=== PATIENT | female | born 1970 | race Caucasian/White ===

== ENCOUNTER → 2018-05-14 | Outpatient (CLI) | payer OTHER ==
[2018-05-14 14:32] VITALS: BP 151/79; PULSE 88; RESP 16; TEMP 97.7; BMI 46.5
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
== END | disposition home or self-care (01) ==
LOC: WWCWWP 14:12
PROVIDERS: ATTEND Surgery
DX: Z53.9 Procedure and treatment not carried out, unspecified reason (principal)

== ENCOUNTER → 2018-11-12 | Outpatient (CLI) | payer OTHER ==
--- NOTE | 2018-11-12 11:07 | MM ---
Reason for exam: follow-up at short interval from prior study. Last mammogram was performed 7 months ago. Physical Findings: Nurse did not find any significant physical abnormalities on exam. MG Diagnostic Mammo RT w CAD CC and MLO view(s) were taken of the right breast. Prior study comparison: April 07, 2018, mammogram. February 05, 2018, mammogram. The breast tissue is heterogeneously dense. This may lower the sensitivity of mammography. Stable right upper outer quadrant focal asymmetry. These results were verbally communicated with the patient and result sheet given to the patient on 11/12/18. ASSESSMENT: Probably benign, BI-RAD 3 RECOMMENDATION: Follow-up diagnostic mammogram of both breasts in 2 months. Back on schedule for January 2019.
--- NOTE | 2018-11-12 11:13 | USB ---
Reason for exam: follow-up at short interval from prior study. US Breast LT Left complete breast ultrasound includes all four quadrants, the retroareolar region and axilla. Finding demonstrates a 11 x 9 x 13mm irregular, spiculated, hypoechoic lesion at 3 o'clock, highly suspicious, biopsy recommended, a 4 x 3 x 3mm lobular, cystic lesion at 7 o'clock, a 8mm oval lymph node at the axilla tail and a 7mm oval lymph node at the axilla tail. These results were verbally communicated with the patient and result sheet given to the patient on 11/12/18. ASSESSMENT: Highly suggestive of malignancy, BI-RAD 5 RECOMMENDATION: Ultrasound core biopsy of the left breast. Called with mammographic findings and has scheduled an appointment for the patient for 12/10/18 at 1:[address] Burgos. Biopsy scheduled for 12/01/18 at 11:20. PRELIMINARY REPORT CALLED AND FAXED TO DR. BURGOS ON 11/12/18.
== END ==
LOC: RADMAMWWP 08:15
PROVIDERS: ATTEND Surgery
DX: R92.8 Other abnormal and inconclusive findings on diagnostic imaging of breast (principal)
CPT/HCPCS: 77065

== ENCOUNTER → 2018-12-01 | Day surgery (SDC) | payer OTHER ==
[2018-12-01 11:50] VITALS: BP 133/84; PULSE 67; RESP 12; TEMP 98.7
--- NOTE | 2018-12-01 16:15 | USB ---
EXAMINATION TYPE: US biopsy breast VAD LT DATE OF EXAM: 12/01/2018 CLINICAL HISTORY: R92.8 ABN MAMMO. TECHNIQUE: Ultrasound guided core biopsy of left breast. COMPARISON: 11/12/2018 FINDINGS: The procedure of ultrasound guided core biopsy was explained to the patient. Benefits, alternatives, and risks were discussed. An informed consent was then obtained. Timeout was performed. The patient was placed in supine positioning for imaging and for the procedure. The overlying skin was prepped with Betadine and draped in usual sterile fashion. Lidocaine buffered with bicarbonate was used as anesthetic into the skin and subcutaneous tissue up to area of concern in the left breast. A prakash was made with surgical scalpel. Under ultrasound guidance, a 12-gauge vacuum assisted biopsy gun device was used to obtain 5 core samples. Following this, a biopsy clip was left in the lesion. The patient tolerated the procedure well without any immediate complication. Discharge instructions were discussed with the patient. The patient was transferred to mammography for postprocedure mammogram. Mammogram: Ribbon clip is present in the mid lateral 3:00 position. IMPRESSION: 1. Successful ultrasound-guided core biopsy. Recommendations: 1. Recommendations are pending pathology results. Pathology Results: Benign LEFT BREAST, THREE O'CLOCK, ULTRASOUND GUIDED CORE BIOPSY: Fibrocystic changes including stromal fibrosis and small cysts. Recommendation Repeat procedure. (Pre biopsy suspicion higher than results). FELI
--- NOTE | 2018-12-02 08:34 | MM ---
Reason for exam: additional evaluation requested from abnormal screening. Last mammogram was performed 1 month ago. MG Diagnostic Mammo LT Wo CAD CC and ML view(s) were taken of the left breast. Prior study comparison: November 12, 2018, right breast MG diagnostic mammo RT w CAD. April 07, 2018, mammogram. ASSESSMENT: Post procedure mammogram for marker placement RECOMMENDATION: Repeat Procedure. (Pre biopsy suspicion higher than results). FELI
== END | disposition home or self-care (01) ==
LOC: RADUSWWP 11:14
PROVIDERS: ATTEND Surgery
DX: N60.12 Diffuse cystic mastopathy of left breast (principal)
CPT/HCPCS: 88305; 77065; 19083; A4648; J2001

== ENCOUNTER → 2018-12-10 | Outpatient (CLI) | payer OTHER ==
[2018-12-10 13:26] VITALS: BP 168/91; PULSE 74; RESP 18; TEMP 97.9; BMI 46.5
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
--- NOTE | 2018-12-14 08:11 | USB ---
Reason for exam: clinical finding. History: Benign US biopsy breast VAD LT of the left breast, December 01, 2018. Physical Findings: Breast exam performed by Dr. Burgos. US Breast RT Right complete breast ultrasound includes all four quadrants, the retroareolar region and axilla. Finding demonstrates a 0.6 x 0.4 x 0.5cm cystic, benign lesion at 11 o'clock. No other solid or cystic lesion. Short interval follow up recommended. Appropriate surgical managment of the left breast recommended. These results were verbally communicated with the patient and result sheet given to the patient on 12/10/18. ASSESSMENT: Probably benign, BI-RAD 3 RECOMMENDATION: Follow-up diagnostic mammogram of the right breast in 6 months.
== END ==
LOC: WWCWWP 13:13
PROVIDERS: ATTEND Surgery
DX: R92.8 Other abnormal and inconclusive findings on diagnostic imaging of breast (principal)

== ENCOUNTER → 2019-02-07 | Outpatient (CLI) | payer OTHER ==
[2019-02-07 13:41] LABS: HCT 44.6 % (34.0-46.0); HGB 14.7 gm/dL (11.4-16.0); MCH 30.7 pg (25.0-35.0); Mean Platelet Volume 6.1; Platelet Count 417 k/uL (150-450); RBC 4.79 m/uL (3.80-5.40); RDW 12.5 % (11.5-15.5); WBC 15.8 k/uL (3.8-10.6)
== END | disposition home or self-care (01) ==
LOC: LABPAT 13:08
PROVIDERS: ATTEND Anesthesiology
DX: Z01.812 Encounter for preprocedural laboratory examination (principal)
CPT/HCPCS: 36415; 85027; 93005

== ENCOUNTER 2019-02-08 09:07 | Day surgery (SDC) | payer OTHER ==
[2019-02-04 11:13] VITALS: BMI 48.2
[~2019-02-08 09:07] MED LIST: DEXAMETHASONE SOD PHOSPHATE 10 MG/ML 1 ML VIAL IV ONE; HEPARIN SODIUM,PORCINE 5,000 UNIT/ML 1 ML VIAL SQ ONE; HYDROmorphone 0.5 MG/0.5 ML SYRINGE IVP PRN; LIDOCAINE 1% 20 ML VIAL (10MG/ML) FOR IV START INTRADERMA PRN; MIDAZOLAM 2 MG/2 ML VIAL IV PRN; ONDANSETRON 4 MG/2 ML VIAL IVP ONE; Pre Op ABX Message 1 EACH MISC MISCELLANE ONE; SCOPOLAMINE 1.5MG/72HR PATCH TRANSDERM ONE
[2019-02-08] MEDS ORDERED: ALPRAZolam 0.5 MG TAB PO ONE (09:50)
[2019-02-08 09:58] LABS: Glucose,Whole Blood 97 mg/dL (75-99)
[2019-02-08] MEDS: LACTATED RINGERS 1,000 ML IV SCH ×2 (09:58→13:42)
[2019-02-08] MEDS ORDERED: LIDOCAINE 1% INJ 10MG/ML (20 ML MDV) SQ ONE ×2 (10:56→13:54)
[2019-02-08] MEDS ORDERED: CITRIC ACID-SODIUM CITRATE 15 ML CUP PO STA (11:59)
[2019-02-08] MEDS ORDERED: HEPARIN SODIUM,PORCINE 5,000 UNIT/ML 1 ML VIAL SQ ONE (13:16)
[2019-02-08] MEDS ORDERED: LIDOCAINE 1% INJ 10MG/ML (20 ML MDV) ONE (13:54)
[2019-02-08] MEDS ORDERED: PHENYLEPHRINE-0.9% NACL SYG 1 MG/10 ML SYRINGE ONE (13:54)
[2019-02-08] MEDS ORDERED: PROPOFOL 10 MG/ML 20 ML VIAL IV ONE (13:54)
[2019-02-08] MEDS ORDERED: fentaNYL (PF) 50 MCG/ML 2 ML AMP ONE (13:54)
[2019-02-08] MEDS ORDERED: SUCCINYLCHOLINE CHLORIDE VIAL 200 MG/10 ML VIAL IV ONE (13:54)
[2019-02-08] MEDS ORDERED: MIDAZOLAM 2 MG/2 ML VIAL ONE (13:54)
[2019-02-08] MEDS ORDERED: ePHEDrine SULFATE/0.9% NACL/PF 50 MG/5 ML SYRINGE IV ONE (13:54)
--- NOTE | 2019-02-08 14:31 | P.OP ---
Date of Procedure: 02/08/19 Preoperative Diagnosis: Left breast ultrasound core biopsy discordant and recommended for needle local excisional biopsy of ultrasound abnormality in left breast Postoperative Diagnosis: Same Procedure(s) Performed: needle Localization excisional lumpectomy area of concern in left breast Anesthesia: ELLEN Surgeon: Joan Burgos Estimated Blood Loss (ml): 5 IV fluids (ml): 400 Pathology: other (Breast tissue) Condition: stable Disposition: same day Indications for Procedure: Ultrasound-guided core biopsy left breast lession discordant pathology therefore recommended for needle localization and excisional biopsy of area of concern Operative Findings: Fibrofatty breast tissue Description of Procedure: Following needle localization of the area of concern in the left breast the patient was brought to the operating room. Following induction of general anesthesia the left breast was prepped and draped in a sterile fashion. Incision was made and carried down to the shaft of the needle. The needle was brought into the incision. The tissue was grasped using an Allis clamp. Tissue was excised surrounding the needle and surrounding the tip of the needle. The tissue appeared to be fibrofatty in nature. The specimen was removed and painted for orientation. Titanium clips were placed to edith the cavity. After we were assured that hemostasis was attained the deep tissues were closed using 3-0 Vicryl suture. The skin was closed using 4-0 Monocryl. Steri-Strips were applied. The patient tolerated the procedure in stable condition.
--- NOTE | 2019-02-08 14:36 | P.DS ---
Providers Attending physician: Joan Burgos Primary care physician: Mitul Rainey Plan - Discharge Summary Discharge Rx Participant: Yes New Discharge Prescriptions: No Action methylPREDNISolone Dose Pack [Medrol Dose Pack] 4 mg PO HS Lisinopril [Zestril] 10 mg PO HS Levofloxacin [Levaquin] 750 mg PO HS DULoxetine HCL [Cymbalta] 30 mg PO HS Discharge Medication List DULoxetine HCL [Cymbalta] 30 mg PO HS 02/04/19 [History] Levofloxacin [Levaquin] 750 mg PO HS 02/04/19 [History] Lisinopril [Zestril] 10 mg PO HS 02/04/19 [History] methylPREDNISolone Dose Pack [Medrol Dose Pack] 4 mg PO HS 02/04/19 [History] Follow up Appointment(s)/Referral(s): Joan Burgos MD [STAFF PHYSICIAN] - 1 Week Patient Instructions/Handouts: *Surgery [facility] - Scopalamine Patch Instructions Activity/Diet/Wound Care/Special Instructions: do not drive today wear bra until seen by Dr. Horace banda shower after 48 hours Discharge Disposition: HOME SELF-CARE
[2019-02-08 15:02] VITALS: TEMP 96.8
[2019-02-08 15:04] VITALS: RESP 16
[2019-02-08 16:11] VITALS: BP 104/75; PULSE 70
--- NOTE | 2019-02-11 14:42 | USB ---
US Breast Localization LT EXAMINATION TYPE: US breast localization LT, MG surgical specimen LT, MG diagnostic mammo LT w CAD DATE OF EXAM: 02/08/2019 COMPARISON: Left breast biopsy dated 12/01/2018, discordant. CLINICAL HISTORY: R92.8 ABNORMAL MAMMOGRAM. TECHNIQUE/PROCEDURE: The procedure of ultrasound guided needle localization of the left breast was explained to the patient. Benefits, alternatives, and risks were discussed. An informed consent was then obtained. Preprocedural timeout was performed. Site A: The patient was placed in supine positioning for imaging and for the procedure. The overlying skin was prepped and draped in usual sterile fashion. 10 cc of 1% lidocaine was used as anesthetic into the skin and subcutaneous tissue up the discordant mass at the 3:00 position in the left breast in zone BC. Under ultrasound guidance from a medial approach, 5 cm needle was passed through the mass and localization wire was placed through the coaxial needle. The coaxial needle was withdrawn and postprocedural mammograms demonstrate appropriate placement of the wire. Images were marked for the surgeon. The patient tolerated the procedure well without any immediate complication. The patient was kept in the radiology department for short stay after the procedure and then taken to surgery for surgical excision. The proximal and distal end of the wire were included in the specimen mammogram. Biopsy marker was also included in the specimen. The patient was kept in hospital for short stay after the procedure and then discharged home in stable condition. IMPRESSION: Ultrasound-guided needle localization of a discordant mass in the left breast at the 3:00 position. Pathology pending. Pathology Results: Benign LEFT BREAST, LUMPECTOMY: Fibrocystic spectrum lesions with focal intraductal papillomatosis and intraductal mineralizations. RECOMMENDATION: Follow-up diagnostic mammogram of the left breast. Pathology Results: Benign LEFT BREAST, LUMPECTOMY: Fibrocystic spectrum lesions with focal intraductal papillomatosis and intraductal mineralizations. Recommendation Follow up mammogram of the left breast in 6 months. FELI
== END 2019-02-08 16:20 | disposition home or self-care (01) ==
LOC: OR 09:07
PROVIDERS: ATTEND Surgery
DX: D24.2 Benign neoplasm of left breast (principal); N60.12 Diffuse cystic mastopathy of left breast; I10 Essential (primary) hypertension; M79.7 Fibromyalgia; G93.2 Benign intracranial hypertension; G47.33 Obstructive sleep apnea (adult) (pediatric); Z99.89 Dependence on other enabling machines and devices; J45.909 Unspecified asthma, uncomplicated; M19.90 Unspecified osteoarthritis, unspecified site; Z97.3 Presence of spectacles and contact lenses; F17.210 Nicotine dependence, cigarettes, uncomplicated; Z98.84 Bariatric surgery status; Z98.51 Tubal ligation status; Z79.899 Other long term (current) drug therapy; Z88.8 Allergy status to other drugs, medicaments and biological substances
CPT/HCPCS: 19125; 19285; 94660; 81025; 88307; 76098; J2250; J0330; J1644; J1100; J2405; J2001; J3010; J2370; J2704

== ENCOUNTER → 2019-02-08 | Outpatient (CLI) | payer OTHER ==
--- NOTE | 2019-02-08 10:07 | MM ---
Reason for exam: additional evaluation requested from prior study. Last mammogram was performed 2 months ago. History: Benign US biopsy breast VAD LT of the left breast, December 01, 2018. MG Diagnostic Mammo LT w CAD CC and MLO view(s) were taken of the left breast. Prior study comparison: December 01, 2018, left breast MG diagnostic mammo LT wo CAD. November 12, 2018, right breast MG diagnostic mammo RT w CAD. February 05, 2018, mammogram. The breast tissue is heterogeneously dense. This may lower the sensitivity of mammography. Left central outer focal asymmetry is associtated with a biopsy marker. This will be needle localized today. No new findings on the left. These results were verbally communicated with the patient and result sheet given to the patient on 02/08/19. ASSESSMENT: Suspicious, BI-RAD 4 RECOMMENDATION: Localization and excision of the left breast.
== END | disposition home or self-care (01) ==
LOC: RADMAMWWP 08:15
PROVIDERS: ATTEND Surgery
DX: R92.8 Other abnormal and inconclusive findings on diagnostic imaging of breast (principal); N60.02 Solitary cyst of left breast
CPT/HCPCS: 77065

== ENCOUNTER → 2019-02-16 | Outpatient (CLI) | payer OTHER ==
[2019-02-16 16:40] VITALS: BP 120/86; PULSE 71; RESP 16; TEMP 97.9; BMI 46.5
--- NOTE | 2019-02-16 17:18 | P.PN ---
Progress Note - Text Progress Note Date: 02/16/19 Shakira is status post a left breast needle local excisional biopsy on [id number] [id number]. Pathology revealed intraductal papillomatosis in intraductal mineralization's. She has no complaints postoperative. Physical exam: Lungs: Some bilateral lower lung base using mild Heart: Regular rate and rhythm Left breast: Incision clean and dry no evidence of infection Impression/plan: 1. Left breast focal intraductal papillomatosis Repeat left breast mammogram in 6 months with position exam at that time 2. Right breast mammogram on schedule Dr. Rainey
== END | disposition home or self-care (01) ==
LOC: WWCWWP 16:17
PROVIDERS: ATTEND Surgery
DX: Z53.9 Procedure and treatment not carried out, unspecified reason (principal)

== ENCOUNTER → 2019-12-02 | Outpatient (CLI) | payer OTHER ==
--- NOTE | 2019-12-02 14:08 | MM ---
Reason for exam: additional evaluation requested from prior study. Last mammogram was performed 10 months ago. History: Patient is postmenopausal. Benign US breast localization LT, February 08, 2019. Benign US biopsy breast VAD LT of the left breast, December 01, 2018. Physical Findings: Nurse did not find any significant physical abnormalities on exam. MG Diagnostic Mammo w CAD JORDAN Bilateral CC and MLO view(s) were taken. Prior study comparison: February 08, 2019, left breast MG diagnostic mammo LT w CAD. December 01, 2018, left breast MG diagnostic mammo LT wo CAD. There are scattered fibroglandular densities. Benign appearing bilateral calcifications. There is chronic nodularity in the left breast. Post operative changes on left breast. These results were verbally communicated with the patient and result sheet given to the patient on 12/02/19. ASSESSMENT: Benign, BI-RAD 2 RECOMMENDATION: Routine screening mammogram of both breasts in 1 year.
== END | disposition home or self-care (01) ==
LOC: RADMAMWWP 13:04
PROVIDERS: ATTEND Surgery
DX: R92.8 Other abnormal and inconclusive findings on diagnostic imaging of breast (principal)
CPT/HCPCS: 77066

== ENCOUNTER 2021-02-26 14:36 | Inpatient (IN) | payer OTHER ==
[2021-02-26] MEDS ORDERED: methylPREDNISolone SOD SUCCI 125 MG/2 ML VIAL IV STA (17:47)
[2021-02-26] MEDS ORDERED: IPRATROPIUM-ALBUTEROL 3 ML NEB INHALATION STA (17:47)
--- NOTE | 2021-02-26 17:52 | ED ---
General Adult HPI - General Chief complaint: Shortness of Breath Stated complaint: SOB Time Seen by Provider: 02/26/21 17:30 Source: patient, RN/ (Case discussed with Dr. Rainey), RN notes reviewed Mode of arrival: ambulatory Limitations: no limitations - History of Present Illness Initial comments: Patient is a pleasant 50-year-old female presenting to the emergency Department with cough and dyspnea. Patient did have COVID-19 infection 2 months ago. Symptoms started getting worse again 4 days ago. Patient was in the emergency department and received steroid injection and placed on 50 mg steroids daily. Patient has symptoms despite this. Patient and wheezing. Cough that has been mostly dry. No fevers. Patient was tested negative for COVID-19 infection and influenza 4 days ago. No fevers. No leg pain or leg swelling. - Related Data Home Medications Medication Instructions Recorded Confirmed DULoxetine HCL [Cymbalta] 30 mg PO HS 02/04/19 02/16/19 lisinopriL [Zestril] 10 mg PO HS 02/04/19 02/16/19 Allergies Allergy/AdvReac Type Severity Reaction Status Date / Time adhesive tape Allergy Rash/Hives Verified 02/26/21 15:35 Review of Systems ROS Statement: Those systems with pertinent positive or pertinent negative responses have been documented in the HPI. ROS Other: All systems not noted in ROS Statement are negative. Constitutional: Denies: fever Eyes: Denies: eye pain ENT: Denies: ear pain Respiratory: Reports: as per HPI, cough, dyspnea Cardiovascular: Denies: chest pain Endocrine: Denies: fatigue Gastrointestinal: Denies: abdominal pain Genitourinary: Denies: dysuria Musculoskeletal: Denies: back pain Skin: Denies: rash Neurological: Denies: weakness Past Medical History Past Medical History: Fibromyalgia, Hypertension, Osteoarthritis (OA), Sleep Apnea/CPAP/BIPAP Additional Past Medical History / Comment(s): CPAP use. Current respiratory illness, on antibiotic and steroid. Instructed to notify Dr Burgos. History of Any Multi-Drug Resistant Organisms: None Reported Past Surgical History: Bariatric Surgery, Section, Orthopedic Surgery, Tonsillectomy, Tubal Ligation Additional Past Surgical History / Comment(s): Right femur surgery. Right sh oulder surgery. Lap band surgery. Past Anesthesia/Blood Transfusion Reactions: Motion Sickness, Postoperative Nausea & Vomiting (PONV) Additional Past Anesthesia/Blood Transfusion Reaction / Comment(s): "Severe PONV even with anti nausea medications and patch." Grandmother had PONV. Past Psychological History: No Psychological Hx Reported Smoking Status: Current every day smoker Past Alcohol Use History: None Reported Past Drug Use History: None Reported - Past Family History Brother(s) Family Medical History: Cancer Additional Family Medical History / Comment(s): Brain cancer. General Exam Limitations: no limitations General appearance: alert, in no apparent distress Head exam: Present: normocephalic Eye exam: Present: normal appearance Respiratory exam: Present: wheezes, decreased breath sounds Cardiovascular Exam: Present: regular rate, normal rhythm GI/Abdominal exam: Present: soft. Absent: tenderness Extremities exam: Present: normal inspection. Absent: pedal edema, calf tenderness Neurological exam: Present: alert Psychiatric exam: Present: normal affect, normal mood Skin exam: Present: normal color Course Vital Signs 02/26/21 02/26/21 02/26/21 15:35 18:17 18:26 Temperature 97.9 F Pulse Rate 61 84 88 Respiratory 18 Rate Blood Pressure 177/84 O2 Sat by Pulse 98 Oximetry 02/26/21 18:33 Temperature Pulse Rate 61 Respiratory Rate Blood Pressure O2 Sat by Pulse Oximetry EKG Findings - EKG Comments: EKG Findings:: Normal sinus rhythm with rate of 60. UT 134. QRS 112. QT 390. QTC 390. Left axis. Left anterior fascicular block. No acute ST change. Medical Decision Making - Medical Decision Making Patient reevaluated and resting comfortably in bed. Lung sounds with continued wheezing, mild increased air exchange. Patient still feels short of breath. Patient updated on results and plan. Case was discussed with Dr. Rutledge, who will admit covered Dr. Rainey. - Lab Data Result diagrams: 02/26/21 18:03 02/26/21 18:03 Lab Results 02/26/21 02/26/21 02/26/21 Range/Units 18:03 18:03 18:03 WBC 8.9 (3.8-10.6) k/uL RBC 4.57 (3.80-5.40) m/uL Hgb 14.6 (11.4-16.0) gm/dL Hct 42.8 (34.0-46.0) % MCV 93.5 (80.0-100.0) fL MCH 31.8 (25.0-35.0) pg MCHC 34.0 (31.0-37.0) g/dL RDW 13.3 (11.5-15.5) % Plt Count 351 (150-450) k/uL MPV 7.4 Neutrophils % 65 % Lymphocytes % 26 % Monocytes % 6 % Eosinophils % 1 % Basophils % 0 % Neutrophils # 5.8 (1.3-7.7) k/uL Lymphocytes # 2.3 (1.0-4.8) k/uL Monocytes # 0.5 (0-1.0) k/uL Eosinophils # 0.1 (0-0.7) k/uL Basophils # 0.0 (0-0.2) k/uL PT 10.2 (9.0-12.0) sec INR 0.9 (<1.2) APTT 23.8 (22.0-30.0) sec D-Dimer 0.52 (<0.60) mg/L FEU Sodium 137 (137-145) mmol/L Potassium 3.7 (3.5-5.1) mmol/L Chloride 101 (98-107) mmol/L Carbon Dioxide 30 (22-30) mmol/L Anion Gap 6 mmol/L BUN 13 (7-17) mg/dL Creatinine 0.62 (0.52-1.04) mg/dL Est GFR (CKD-EPI)AfAm >90 (>60 ml/min/1.73 sqM) Est GFR (CKD-EPI)NonAf >90 (>60 ml/min/1.73 sqM) Glucose 86 (74-99) mg/dL Plasma Lactic Acid Mo (0.7-2.0) mmol/L Calcium 9.5 (8.4-10.2) mg/dL Total Bilirubin 0.9 (0.2-1.3) mg/dL AST 18 (14-36) U/L ALT 15 (4-34) U/L Alkaline Phosphatase 59 (38-126) U/L NT-Pro-B Natriuret Pep pg/mL Total Protein 7.1 (6.3-8.2) g/dL Albumin 4.0 (3.5-5.0) g/dL 11/16/21 11/16/21 Range/Units 18:03 18:03 WBC (3.8-10.6) k/uL RBC (3.80-5.40) m/uL Hgb (11.4-16.0) gm/dL Hct (34.0-46.0) % MCV (80.0-100.0) fL MCH (25.0-35.0) pg MCHC (31.0-37.0) g/dL RDW (11.5-15.5) % Plt Count (150-450) k/uL MPV Neutrophils % % Lymphocytes % % Monocytes % % Eosinophils % % Basophils % % Neutrophils # (1.3-7.7) k/uL Lymphocytes # (1.0-4.8) k/uL Monocytes # (0-1.0) k/uL Eosinophils # (0-0.7) k/uL Basophils # (0-0.2) k/uL PT (9.0-12.0) sec INR (<1.2) APTT (22.0-30.0) sec D-Dimer (<0.60) mg/L FEU Sodium (137-145) mmol/L Potassium (3.5-5.1) mmol/L Chloride (98-107) mmol/L Carbon Dioxide (22-30) mmol/L Anion Gap mmol/L BUN (7-17) mg/dL Creatinine (0.52-1.04) mg/dL Est GFR (CKD-EPI)AfAm (>60 ml/min/1.73 sqM) Est GFR (CKD-EPI)NonAf (>60 ml/min/1.73 sqM) Glucose (74-99) mg/dL Plasma Lactic Acid Mo 0.8 (0.7-2.0) mmol/L Calcium (8.4-10.2) mg/dL Total Bilirubin (0.2-1.3) mg/dL AST (14-36) U/L ALT (4-34) U/L Alkaline Phosphatase (38-126) U/L NT-Pro-B Natriuret Pep 377 pg/mL Total Protein (6.3-8.2) g/dL Albumin (3.5-5.0) g/dL - Radiology Data Radiology results: image reviewed (Chest x-ray shows mild interstitial prominence is viewed by myself. Radiologist dictation pending.) Disposition Clinical Impression: Acute exacerbation of chronic obstructive pulmonary disease Disposition: ADMITTED IP TO THIS HOSP Is patient prescribed a controlled substance at d/c from ED?: No Referrals: Mitul Rainey MD [Primary Care Provider] - 1-2 days Decision Time: 19:07
[2021-02-26 18:09] LABS: Basophils % (A) 0 %; Eosinophils # (A) 0.1 k/uL (0-0.7); Eosinophils % (A) 1 %; HCT 42.8 % (34.0-46.0); HGB 14.6 gm/dL (11.4-16.0); Lymphocytes # (A) 2.3 k/uL (1.0-4.8); Lymphocytes % (A) 26 %; MCH 31.8 pg (25.0-35.0); MCV 93.5 fL (80.0-100.0); Mean Platelet Volume 7.4; Monocytes # (A) 0.5 k/uL (0-1.0); Monocytes % (A) 6 %; Neutrophils # (A) 5.8 k/uL (1.3-7.7); Neutrophils % (A) 65 %; Platelet Count 351 k/uL (150-450); RBC 4.57 m/uL (3.80-5.40); RDW 13.3 % (11.5-15.5); WBC 8.9 k/uL (3.8-10.6)
[2021-02-26 18:23] LABS: ALT 15 U/L (4-34); AST 18 U/L (14-36); African American GFR (CKD) >90 (>60 ml/min/1.73 sqM); Alkaline Phosphatase 59 U/L (38-126); Anion Gap 6 mmol/L; Blood Urea Nitrogen 13 mg/dL (7-17); Calcium 9.5 mg/dL (8.4-10.2); Carbon Dioxide 30 mmol/L (22-30); Chloride 101 mmol/L (98-107); Glucose 86 mg/dL (74-99); Non-African American GFR(CKD) >90 (>60 ml/min/1.73 sqM); Potassium 3.7 mmol/L (3.5-5.1); Sodium 137 mmol/L (137-145); Total Bilirubin 0.9 mg/dL (0.2-1.3); Total Protein 7.1 g/dL (6.3-8.2)
[2021-02-26 18:29] LABS: INR 0.9 (<1.2); Partial Thromboplastin Time 23.8 sec (22.0-30.0); Prothrombin Time 10.2 sec (9.0-12.0)
[2021-02-26] MEDS: IPRATROPIUM-ALBUTEROL 3 ML NEB INHALATION SCH (19:25)
--- NOTE | 2021-02-26 19:32 | XR ---
EXAMINATION TYPE: XR chest 2V DATE OF EXAM: 02/26/2021 CLINICAL HISTORY: difficulty breathing. TECHNIQUE: Frontal and lateral view of the chest. COMPARISON: None FINDINGS: The cardiomediastinal silhouette is within normal limits for size. Pulmonary vasculature i s normal. There is no focal air space opacity. No pleural effusion. No pneumothorax seen. No acute d isplaced osseous fracture. IMPRESSION: No acute cardiopulmonary process.
[2021-02-26] MEDS: CEFDINIR 300 MG CAP PO SCH (23:05)
[2021-02-27] MEDS: methylPREDNISolone SOD SUCCI 125 MG/2 ML VIAL IV SCH ×4 (00:18→18:06)
[2021-02-27] MEDS: IPRATROPIUM-ALBUTEROL 3 ML NEB INHALATION SCH ×4 (08:17→20:56)
[2021-02-27] MEDS: CEFDINIR 300 MG CAP PO SCH ×2 (09:19→21:05)
[2021-02-27 11:38] LABS: Glucose,Whole Blood 151 mg/dL (75-99)
[2021-02-27] MEDS: INSULIN ASPART (NovoLOG) 100 UNIT/ML VIAL SQ SCH ×3 (12:17→21:05)
[2021-02-27] MEDS: lisinopriL 10 MG TAB PO SCH (12:17)
[2021-02-27] MEDS ORDERED: FLUCONAZOLE 150 MG TAB PO STA (12:40)
--- NOTE | 2021-02-27 14:54 | P.HPIM ---
History of Present Illness H&P Date: 02/27/21 HISTORY OF PRESENT ILLNESS This is a 50-year-old female patient of Dr. Rainey with past medical history of hypertension, fibromyalgia, moderate intermittent asthma, obstructive sleep apnea with CPAP, Covid 19 01/10/2021. Patient gives history that she has had ongoing problems since she had Covid 19. 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 Recently granddaughter was sick with upper respiratory infection and 2 days later she started having shortness of breath. She presented to [facility] last day to the emergency center and was given prednisone 50 mg for 10 days and received a steroid injection IM. She states now that she cannot get her air. She has been hoarse since Covid 19. Last day she did vomit but that is resolved. No fever or chills. She does complain of dysuria. Patient presented to [facility] emergency center for evaluation. She was found to be afebrile, heart rate 61, blood pressure 177/84, pulse ox 98% on room air. EKG was sinus rhythm with left anterior fascicular block. CBC and CMP unremarkable. Lactic acid 0.8. D-dimer 0.52. INR 0.9. Coronavirus PCR not detected. Chest x-ray reveals no acute cardio pulmonary changes. She was started on DuoNeb treatments, IV Solu-Medrol and oral antibiotics, admitted and consult placed with Dr. Velez her pulmonary doctor. REVIEW OF SYSTEMS Constitutional: No fever, no chills, no night sweats. No weight change. No weakness, fatigue or lethargy. No daytime sleepiness. EENT: No headache. No blurred vision or double vision, no loss of vision. No loss of Hearing, no ringing in the ears, no dizziness. No nasal drainage or congestion. No epistaxis. No sore throat. Lungs: Reports shortness of breath, reports cough, reports sputum production. No wheezing. Cardiovascular: No chest pain, no lower extremity edema. No palpitations. No paroxysmal nocturnal dyspnea. No orthopnea. No lightheadedness or dizziness. No syncopal episodes. Abdominal: No abdominal pain. No nausea, vomiting. No diarrhea. No constipation. No bloody or tarry stools. No loss of appetite. Genitourinary: No dysuria, increased frequency, urgency. No urinary retention. Musculoskeletal: No myalgias. No muscle weakness, no gait dysfunction, no frequent falls. No back pain. No neck pain. Integumentary: No wounds, no lesions. No rash or pruritus. No unusual bruising. No change in hair or nails. Neurologic: No aphasia. No facial droop. No change in mentation. No head injury. No headache. No paralysis. No paresthesia. Psychiatric: No depression. No anxiety. No mood swings. Endocrine: No abnormal blood sugars. No weight change. No excessive sweating or thirst. No cold intolerance. SOCIAL HISTORY Patient is a smoker of less than pack a day for 10 years. Patient has a nebulizer and CPAP at home. She denies any alcohol use, marijuana or illicit drug use. She lives at home with her . 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 FAMILY HISTORY Father at age 67 from liver cancer with history of hepatitis. Mother age 67 from Mrs. myocardial infarction while sleeping. Patient is a total of 5 siblings. One brother has glioblastoma treated for 7 years, CHF, morbid obesity. Patient has 5 children with no major medical problems patient is a smoker 10 years currently down to half a pack per day or less. She denies any marijuana use, alcohol use or illicit drug use. She is and lives at home with her . 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 PHYSICAL EXAMINATION Gen: This allen 50-year-old female. She is resting in bed appears to be comfortable and in no acute distress. Noted cough. HEENT: Head is atraumatic, normocephalic. Pupils equal, round. Sclerae is anicteric. NECK: Supple. No JVD. No lymphadenopathy. No thyromegaly. LUNGS: diminished with scattered expiratory wheeze and rhonchi. No intercostal retractions. HEART: Regular rate and rhythm. No murmur. ABDOMEN: Soft. Bowel sounds are present. No masses. No tenderness. EXTREMITIES: No pedal edema. No calf tenderness. dorsalis pedis palpable bilaterally. NEUROLOGICAL: Patient is awake, alert and oriented x3. Cranial nerves 2 through 12 are grossly intact. ASSESSMENT AND PLAN 1. Acute exacerbation of moderate intermittent asthma and COPD. Patient started on IV Solu-Medrol 60 mg every 6 hours, DuoNeb treatments 4 times daily and as needed, consult pulmonary medicine. 2. Acute bronchitis. Patient started on Omnicef 300 mg twice daily. 3. Hypertension. Continue lisinopril 10 mg daily. 4. Fibromyalgia. Stable. 5. Obstructive sleep apnea. Family may bring and CPAP machine. 6. Recent history of Covid 19 02/09/2021. 7. Tobacco use and dependence. Smoking cessation. 8. COVID-19 testing negative. Patient has been hospitalized during a pandemic. Patient will be admitted to the hospital for a minimum of 2 night stay. DISCHARGE PLAN Home. Impression and plan of care have been directed as dictated by the signing physician. Shena Ribera nurse practitioner acting as scribe for signing physician. Past Medical History Past Medical History: Fibromyalgia, Hypertension, Osteoarthritis (OA), Sleep Apnea/CPAP/BIPAP Additional Past Medical History / Comment(s): CPAP use. Current respiratory illness, on antibiotic and steroid. History of Any Multi-Drug Resistant Organisms: None Reported Past Surgical History: Bariatric Surgery, Section, Orthopedic Surgery, Tonsillectomy, Tubal Ligation Additional Past Surgical History / Comment(s): Right femur surgery. Right shoulder surgery. Lap band surgery. Past Anesthesia/Blood Transfusion Reactions: Motion Sickness, Postoperative Nausea & Vomiting (PONV) Additional Past Anesthesia/Blood Transfusion Reaction / Comment(s): "Severe PONV even with anti nausea medications and patch." Grandmother had PONV. Past Psychological History: No Psychological Hx Reported Smoking Status: Current every day smoker Past Alcohol Use History: None Reported Additional Past Alcohol Use History / Comment(s): Smokes 1/2 PPD, 20+ yrs. Past Drug Use History: None Reported - Past Family History Brother(s) Family Medical History: Cancer Additional Family Medical History / Comment(s): Brain cancer. Medications and Allergies Home Medications Medication Instructions Recorded Confirmed Type lisinopriL [Zestril] 10 mg PO DAILY 02/04/19 02/26/21 History ALPRAZolam [Xanax] 0.5 mg PO TID PRN 02/26/21 02/26/21 History Albuterol Sulfate [Proair Hfa] 2 puff INHALATION RT-Q6H PRN 02/26/21 02/26/21 History predniSONE [Deltasone] 50 mg PO DAILY 02/26/21 02/26/21 History Allergies Allergy/AdvReac Type Severity Reaction Status Date / Time adhesive tape Allergy Rash/Hives Verified 02/26/21 19:41 Physical Exam Vitals: Vital Signs Temp Pulse Pulse Pulse Resp BP BP 02/27/21 08:26 92 18 02/27/21 08:17 90 22 02/27/21 08:00 69 68 18 02/27/21 07:34 97.8 F 69 21 02/27/21 05:50 18 02/27/21 00:27 98.2 F 68 18 130/64 02/27/21 00:20 68 18 02/26/21 23:01 98.2 F 69 18 136/65 02/26/21 19:53 61 18 02/26/21 18:33 61 02/26/21 18:26 88 02/26/21 18:17 84 02/26/21 15:35 97.9 F 61 18 177/84 BP Pulse Ox 02/27/21 08:26 02/27/21 08:17 95 02/27/21 08:00 02/27/21 07:34 177/76 94 L 02/27/21 05:50 02/27/21 00:27 95 02/27/21 00:20 02/26/21 23:01 94 L 02/26/21 19:53 02/26/21 18:33 02/26/21 18:26 02/26/21 18:17 02/26/21 15:35 98 Intake and Output 02/26/21 02/27/21 02/27/21 22:59 06:59 14:59 Other: Voiding Method Toilet Toilet Weight 131.542 kg 131.542 kg Results CBC & Chem 7: 02/26/21 18:03 02/26/21 18:03 Thrombosis Risk Factor Assmnt - Choose All That Apply Each Factor Represents 1 point: Age 41-60 years, Obesity (BMI >25), Serious lung disease incl. pneumonia (< 1month) Thrombosis Risk Factor Assessment Total Risk Factor Score: 3 Thrombosis Risk Factor Assessment Level: Moderate Risk
[2021-02-27 17:30] LABS: Glucose,Whole Blood 173 mg/dL (75-99)
[2021-02-27 20:21] LABS: Glucose,Whole Blood 157 mg/dL (75-99)
[2021-02-28] MEDS: methylPREDNISolone SOD SUCCI 125 MG/2 ML VIAL IV SCH ×2 (00:10→05:38)
[2021-02-28] MEDS: IPRATROPIUM-ALBUTEROL 3 ML NEB INHALATION PRN (00:25)
[2021-02-28 07:42] LABS: Glucose,Whole Blood 184 mg/dL (75-99)
[2021-02-28] MEDS: CEFDINIR 300 MG CAP PO SCH ×2 (08:34→20:38)
[2021-02-28] MEDS: lisinopriL 10 MG TAB PO SCH (08:34)
[2021-02-28] MEDS: INSULIN ASPART (NovoLOG) 100 UNIT/ML VIAL SQ SCH ×4 (08:35→20:32)
--- NOTE | 2021-02-28 09:33 | P.CNPUL ---
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, her other active medical problems include hypertension hypertensive cardiovascular disease fibromyalgia few weeks ago she joined work since then she is been short of breath get exhausted and tired easily, she have a couple of visit to emergency department at [facility] where she was discharged given course of steroids for 10 days, did not improve her situation, continue her shortness of breath and cough and chest tightness came into the [facility] for the evaluation and intervention and treatment, she has been using her CPAP machine at home regularly, sleep disorder breathing and sleep apnea well controlled, she however has chronic hoarseness started about covert infection and is not resolving On presentation in emergency department she was afebrile with slightly elevated blood pressure oxygen saturation was 98%, COVID-19 was negative, chest x-ray negative for any acute finding patient has been on steroids breathing treatments and oral antibiotic continuation of home medications taking Review of Systems All systems: negative Past Medical History Past Medical History: Fibromyalgia, Hypertension, Osteoarthritis (OA), Sleep Apnea/CPAP/BIPAP Additional Past Medical History / Comment(s): CPAP use. Current respiratory illness, on antibiotic and steroid. History of Any Multi-Drug Resistant Organisms: None Reported Past Surgical History: Bariatric Surgery, Section, Orthopedic Surgery, Tonsillectomy, Tubal Ligation Additional Past Surgical History / Comment(s): Right femur surgery. Right shoulder surgery. Lap band surgery. Past Anesthesia/Blood Transfusion Reactions: Motion Sickness, Postoperative Nausea & Vomiting (PONV) Additional Past Anesthesia/Blood Transfusion Reaction / Comment(s): "Severe PONV even with anti nausea medications and patch." Grandmother had PONV. Past Psychological History: No Psychological Hx Reported Smoking Status: Current every day smoker Past Alcohol Use History: None Reported Additional Past Alcohol Use History / Comment(s): Smokes 1/2 PPD, 20+ yrs. Past Drug Use History: None Reported - Past Family History Brother(s) Family Medical History: Cancer Additional Family Medical History / Comment(s): Brain cancer. Medications and Allergies Home Medications Medication Instructions Recorded Confirmed Type lisinopriL [Zestril] 10 mg PO DAILY 02/04/19 02/26/21 History ALPRAZolam [Xanax] 0.5 mg PO TID PRN 02/26/21 02/26/21 History Albuterol Sulfate [Proair Hfa] 2 puff INHALATION RT-Q6H PRN 02/26/21 02/26/21 History predniSONE [Deltasone] 50 mg PO DAILY 02/26/21 02/26/21 History Allergies Allergy/AdvReac Type Severity Reaction Status Date / Time adhesive tape Allergy Rash/Hives Verified 02/26/21 19:41 Physical Exam Vitals: Vital Signs Temp Pulse Pulse Pulse Resp BP BP 02/27/21 16:00 72 02/27/21 15:46 68 20 02/27/21 14:44 98.1 F 65 18 02/27/21 14:00 65 20 02/27/21 13:10 84 18 02/27/21 12:58 88 18 02/27/21 08:26 92 18 02/27/21 08:17 90 22 02/27/21 08:00 69 68 18 02/27/21 07:34 97.8 F 69 21 02/27/21 05:50 18 02/27/21 00:27 98.2 F 68 18 130/64 02/27/21 00:20 68 18 02/26/21 23:01 98.2 F 69 18 136/65 02/26/21 19:53 61 18 02/26/21 18:33 61 02/26/21 18:26 88 02/26/21 18:17 84 BP Pulse Ox 02/27/21 16:00 02/27/21 15:46 02/27/21 14:44 138/67 96 02/27/21 14:00 02/27/21 13:10 02/27/21 12:58 02/27/21 08:26 02/27/21 08:17 95 02/27/21 08:00 02/27/21 07:34 177/76 94 L 02/27/21 05:50 11/17/21 00:27 95 02/27/21 00:20 02/26/21 23:01 94 L 02/26/21 19:53 02/26/21 18:33 02/26/21 18:26 02/26/21 18:17 Intake and Output 02/27/21 02/27/21 02/27/21 06:59 14:59 22:59 Intake Total 480 Balance 480 Intake: Oral 480 Other: Voiding Method Toilet Toilet # Voids 2 Weight 131.542 kg - Constitutional General appearance: average body habitus, disheveled, mild distress - EENT Eyes: EOMI, PERRLA Ears: bilateral: normal - Neck Carotids: bilateral: upstroke normal Thyroid: bilateral: normal size - Respiratory Respiratory: bilateral: rhonchi, wheezing, prolonged expiration - Cardiovascular Rhythm: regular Heart sounds: normal: S1, S2 - Gastrointestinal General gastrointestinal: decreased bowel sounds, soft - Integumentary Integumentary: normal, normal turgor - Neurologic Neurologic: CNII-XII intact - Musculoskeletal Musculoskeletal: gait normal, generalized weakness, strength equal bilaterally - Psychiatric Psychiatric: A&O x's 3, appropriate affect, intact judgment & insight Results - Laboratory Findings CBC and BMP: 02/26/21 18:03 02/26/21 18:03 PT/INR, D-dimer PT 10.2 sec (9.0-12.0) 02/26/21 18:03 INR 0.9 (<1.2) 02/26/21 18:03 D-Dimer 0.52 mg/L FEU (<0.60) 02/26/21 18:03 Abnormal lab findings: Abnormal Labs 02/27/21 11:34 POC Glucose (mg/dL) 151 H - Diagnostic Findings Chest x-ray: report reviewed, image reviewed (He has noted above) Assessment and Plan Assessment: Acute asthma exacerbation Asthmatic bronchitis/tracheobronchitis Hypertension hypertensive cardiovascular disease Steroid-induced hyperglycemia and diabetes mellitus Morbid obesity Sleep disorder breathing and sleep apnea Chronic hoarseness History of COVID-19 pneumonia Plan: IV steroids Bronchodilators Broad-spectrum antibiotics Continue CPAP from home Further evaluation of asthma as outpatient once stabilized patient may need evaluation for biologic agents Further evaluation of hoarseness as outpatient which includes ENT evaluation as well Time with Patient: Greater than 30
--- NOTE | 2021-02-28 09:44 | P.PN ---
Subjective Progress Note Date: 02/28/21 Principal diagnosis: Acute asthma exacerbation Asthmatic bronchitis/tracheobronchitis Hypertension hypertensive cardiovascular disease Steroid-induced hyperglycemia and diabetes mellitus Morbid obesity Sleep disorder breathing and sleep apnea Chronic hoarseness History of COVID-19 pneumonia February 28 2021, patient seen carlitos examined during the rounds her labs reviewed medications reviewed care plan discussed with the patient at length, patient feels that the shortness of breath and wheezing slightly better, but still have congestion as well as nonproductive cough, severity however has improved, I will discuss with her about therapeutic plan she seems to agree Patient is a pleasant 50-year-old female well-known to me with prior history of sleep disorder breathing and sleep apnea she has been exposed and infected to covert in December recovered by January however do blood chronic hoarseness and ongoing shortness of breath she does have a history of mild intermittent asthma and by profession, she has a smoke half pack per day for 5-10 years off and on, 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 for the evaluation and intervention and treatment, she has been using her CPAP machine at home regularly, sleep disorder breathing and sleep apnea well controlled, she however has chronic hoarseness started about covert infection and is not resolving On presentation in emergency department she was afebrile with slightly elevated blood pressure oxygen saturation was 98%, COVID-19 was negative, chest x-ray negative for any acute finding patient has been on steroids breathing treatments and oral antibiotic continuation of home medications taking Objective - Vital Signs Vital signs: Vital Signs Temp 97.6 F 02/28/21 07:00 Pulse 57 L 02/28/21 08:00 Resp 16 02/28/21 08:00 BP 163/79 02/28/21 07:00 Pulse Ox 96 02/28/21 07:00 Intake & Output 02/27/21 02/28/21 02/28/21 18:59 06:59 18:59 Intake Total 480 720 Balance 480 720 Intake: Oral 480 720 Other: Voiding Method Toilet Toilet Toilet # Voids 2 1 1 - Exam - Constitutional General appearance: average body habitus, disheveled, mild distress - EENT Eyes: EOMI, PERRLA Ears: bilateral: normal - Neck Carotids: bilateral: upstroke normal Thyroid: bilateral: normal size - Respiratory Respiratory: bilateral: rhonchi, wheezing, prolonged expiration - Cardiovascular Rhythm: regular Heart sounds: normal: S1, S2 - Gastrointestinal General gastrointestinal: decreased bowel sounds, soft - Integumentary Integumentary: normal, normal turgor - Neurologic Neurologic: CNII-XII intact - Musculoskeletal Musculoskeletal: gait normal, generalized weakness, strength equal bilaterally - Psychiatric Psychiatric: A&O x's 3, appropriate affect, intact judgment & insight - Labs CBC & Chem 7: 02/26/21 18:03 02/26/21 18:03 Labs: Abnormal Lab Results - Last 24 Hours (Table) 02/27/21 02/27/21 02/27/21 Range/Units 11:34 17:28 20:19 POC Glucose (mg/dL) 151 H 173 H 157 H (75-99) mg/dL 02/28/21 Range/Units 07:41 POC Glucose (mg/dL) 184 H (75-99) mg/dL Assessment and Plan Assessment: Acute asthma exacerbation Asthmatic bronchitis/tracheobronchitis Hypertension hypertensive cardiovascular disease Steroid-induced hyperglycemia and diabetes mellitus Morbid obesity Sleep disorder breathing and sleep apnea Chronic hoarseness History of COVID-19 pneumonia Plan: IV steroids Bronchodilators Broad-spectrum antibiotics Continue CPAP from home Further evaluation of asthma as outpatient once stabilized patient may need evaluation for biologic agents Further evaluation of hoarseness as outpatient which includes ENT evaluation as well Time with Patient: Greater than 30
[2021-02-28] MEDS: IPRATROPIUM-ALBUTEROL 3 ML NEB INHALATION SCH ×4 (09:47→20:34)
--- NOTE | 2021-02-28 09:55 | P.PN ---
Subjective Progress Note Date: 02/28/21 HISTORY OF PRESENT ILLNESS This is a 50-year-old female patient of Dr. Rainey with past medical history of hy pertension, fibromyalgia, moderate intermittent asthma, obstructive sleep apnea with CPAP, Covid 19 01/10/2021. Patient gives history that she has had ongoing problems since she had Covid 19. 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 Recently granddaughter was sick with upper respiratory infection and 2 days later she started having shortness of breath. She presented to [facility] last day to the emergency center and was given prednisone 50 mg for 10 days and received a steroid injection IM. She states now that she cannot get her air. She has been hoarse since Covid 19. Last day she did vomit but that is resolved. No fever or chills. She does complain of dysuria. Patient presented to [facility] emergency center for evaluation. She was found to be afebrile, heart rate 61, blood pressure 177/84, pulse ox 98% on room air. EKG was sinus rhythm with left anterior fascicular block. CBC and CMP unremarkable. Lactic acid 0.8. D-dimer 0.52. INR 0.9. Coronavirus PCR not detected. Chest x-ray reveals no acute cardio pulmonary changes. She was started on DuoNeb treatments, IV Solu-Medrol and oral antibiotics, admitted and consult placed with Dr. Velez her pulmonary doctor. 02/28: Patient has been seen by Dr. Velez with plan to continue current management. She is on Kyle 60 mg IV every 6 hours. Blood sugars are running between 157 and 184. She has been afebrile, heart rate 84, blood pressure 163/79, pulse ox 96% on room air. Patient states she is only minimally better from yesterday. She states she did not sleep well. She was subsequently REVIEW OF SYSTEMS Constitutional: No fever, no chills, no night sweats. No weight change. No weakness, fatigue or lethargy. No daytime sleepiness. EENT: No headache. No blurred vision or double vision, no loss of vision. No loss of Hearing, no ringing in the ears, no dizziness. No nasal drainage or congestion. No epistaxis. No sore throat. Lungs: Reports shortness of breath, reports cough, reports sputum production. No wheezing. Cardiovascular: No chest pain, no lower extremity edema. No palpitations. No paroxysmal nocturnal dyspnea. No orthopnea. No lightheadedness or dizziness. No syncopal episodes. Abdominal: No abdominal pain. No nausea, vomiting. No diarrhea. No constipa tion. No bloody or tarry stools. No loss of appetite. Genitourinary: No dysuria, increased frequency, urgency. No urinary retention. Musculoskeletal: No myalgias. No muscle weakness, no gait dysfunction, no frequent falls. No back pain. No neck pain. Integumentary: No wounds, no lesions. No rash or pruritus. No unusual bruising. No change in hair or nails. Neurologic: No aphasia. No facial droop. No change in mentation. No head injury. No headache. No paralysis. No paresthesia. Psychiatric: No depression. No anxiety. No mood swings. Endocrine: Noted abnormal blood sugars. No weight change. No excessive sweating or thirst. No cold intolerance. PHYSICAL EXAMINATION Gen: This allen 50-year-old female. She is resting in chair appears to be comfortable and in no acute distress. Noted cough. HEENT: Head is atraumatic, normocephalic. Pupils equal, round. Sclerae is a nicteric. NECK: Supple. No JVD. No lymphadenopathy. No thyromegaly. LUNGS: diminished with scattered expiratory wheeze and rhonchi. No intercostal retractions. HEART: Regular rate and rhythm. No murmur. ABDOMEN: Soft. Bowel sounds are present. No masses. No tenderness. EXTREMITIES: No pedal edema. No calf tenderness. dorsalis pedis palpable bilaterally. NEUROLOGICAL: Patient is awake, alert and oriented x3. Cranial nerves 2 through 12 are grossly intact. ASSESSMENT AND PLAN 1. Acute exacerbation of moderate intermittent asthma and COPD. Patient started on IV Solu-Medrol decreased to 40 mg every 8 hours, DuoNeb treatments 4 times daily and as needed, consult pulmonary medicine. 2. Acute bronchitis. Patient started on Omnicef 300 mg twice daily. 3. Hypertension. Continue lisinopril 10 mg daily. 4. Fibromyalgia. Stable. 5. Obstructive sleep apnea. Family may bring and CPAP machine. 6. Recent history of Covid 19 02/09/2021. 7. Tobacco use and dependence. Smoking cessation. 8. COVID-19 testing negative. Patient has been hospitalized during a pandemic. DISCHARGE PLAN Home on Thursday Impression and plan of care have been directed as dictated by the signing physician. Shena Ribera nurse practitioner acting as scribe for signing physician. Objective - Vital Signs Vital signs: Vital Signs Temp 97.6 F 02/28/21 07:00 Pulse 57 L 02/28/21 08:00 Resp 16 02/28/21 08:00 BP 163/79 02/28/21 07:00 Pulse Ox 96 02/28/21 07:00 Intake & Output 02/27/21 02/28/21 02/28/21 18:59 06:59 18:59 Intake Total 480 720 Balance 480 720 Intake: Oral 480 720 Other: Voiding Method Toilet Toilet Toilet # Voids 2 1 1 - Labs CBC & Chem 7: 02/26/21 18:03 02/26/21 18:03 Labs: Abnormal Lab Results - Last 24 Hours (Table) 02/27/21 02/27/21 02/27/21 Range/Units 11:34 17:28 20:19 POC Glucose (mg/dL) 151 H 173 H 157 H (75-99) mg/dL 02/28/21 Range/Units 07:41 POC Glucose (mg/dL) 184 H (75-99) mg/dL
[2021-02-28 10:57] LABS: Appearance,Urine Clear (Clear); Bilirubin,Urine Negative (Negative); Blood,Urine Negative (Negative); Color,Urine Yellow; Glucose,Urine (UA) Negative (Negative); Ketones,Urine Negative (Negative); Leukocyte Esterase,Urine Negative (Negative); Nitrite,Urine Negative (Negative); Protein,Urine Negative (Negative); Specific Gravity,Urine 1.022 (1.001-1.035); Urobilinogen,Urine <2.0 mg/dL (<2.0)
[2021-02-28 12:28] LABS: Glucose,Whole Blood 145 mg/dL (75-99)
[2021-02-28] MEDS: ALPRAZolam 0.5 MG TAB PO PRN (12:52)
[2021-02-28] MEDS ORDERED: methylPREDNISolone SOD SUCCI 40 MG/ML 1 ML VIAL IV SCH (16:00)
[2021-02-28 17:42] LABS: Glucose,Whole Blood 92 mg/dL (75-99)
[2021-02-28 20:27] LABS: Glucose,Whole Blood 128 mg/dL (75-99)
[2021-03-01] MEDS: IPRATROPIUM-ALBUTEROL 3 ML NEB INHALATION PRN (01:01)
[2021-03-01 07:14] LABS: Glucose,Whole Blood 151 mg/dL (75-99)
[2021-03-01] MEDS: INSULIN ASPART (NovoLOG) 100 UNIT/ML VIAL SQ SCH ×4 (08:09→20:54)
[2021-03-01] MEDS: predniSONE 20 MG TAB PO SCH (08:11)
[2021-03-01] MEDS: lisinopriL 10 MG TAB PO SCH (08:11)
[2021-03-01] MEDS: CEFDINIR 300 MG CAP PO SCH ×2 (08:17→20:54)
[2021-03-01] MEDS: IPRATROPIUM-ALBUTEROL 3 ML NEB INHALATION SCH ×4 (08:29→20:03)
[2021-03-01] MEDS ORDERED: guaiFENesin-Coden 100-10MG/5ML 10 ML CUP PO PRN (10:14)
[2021-03-01 12:23] LABS: Glucose,Whole Blood 128 mg/dL (75-99)
--- NOTE | 2021-03-01 13:44 | P.PN ---
Subjective Progress Note Date: 03/01/21 HISTORY OF PRESENT ILLNESS This is a 50-year-old female patient of Dr. Rainey with past medical history of hy pertension, fibromyalgia, moderate intermittent asthma, obstructive sleep apnea with CPAP, Covid 19 01/10/2021. Patient gives history that she has had ongoing problems since she had Covid 19. 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 Recently granddaughter was sick with upper respiratory infection and 2 days later she started having shortness of breath. She presented to [facility] last day to the emergency center and was given prednisone 50 mg for 10 days and received a steroid injection IM. She states now that she cannot get her air. She has been hoarse since Covid 19. Last day she did vomit but that is resolved. No fever or chills. She does complain of dysuria. Patient presented to [facility] emergency center for evaluation. She was found to be afebrile, heart rate 61, blood pressure 177/84, pulse ox 98% on room air. EKG was sinus rhythm with left anterior fascicular block. CBC and CMP unremarkable. Lactic acid 0.8. D-dimer 0.52. INR 0.9. Coronavirus PCR not detected. Chest x-ray reveals no acute cardio pulmonary changes. She was started on DuoNeb treatments, IV Solu-Medrol and oral antibiotics, admitted and consult placed with Dr. Velez her pulmonary doctor. 02/28: Patient has been seen by Dr. Velez with plan to continue current management. She is on Kyle 60 mg IV every 6 hours. Blood sugars are running between 157 and 184. She has been afebrile, heart rate 84, blood pressure 163/79, pulse ox 96% on room air. Patient states she is only minimally better from yesterday. She states she did not sleep well. She was subsequently 03/01: Patient continues to have shortness of breath especially with activity and wheezing, tightness. She has been seen by Dr. Velez and continued on same medications. Capillary blood glucose running between 92 and 151. Patient has been afebrile, heart rate 54, blood pressure 164/91, pulse ox 90% on room air. We will plan to transition patient to oral prednisone and possible discharge tomorrow. REVIEW OF SYSTEMS Constitutional: No fever, no chills, no night sweats. No weight change. No weakness, fatigue or lethargy. No daytime sleepiness. EENT: No headache. No blurred vision or double vision, no loss of vision. No loss of Hearing, no ringing in the ears, no dizziness. No nasal drainage or congestion. No epistaxis. No sore throat. Lungs: Reports shortness of breath, reports cough, reports sputum production. Reports wheezing. Cardiovascular: No chest pain, no lower extremity edema. No palpitations. No paroxysmal nocturnal dyspnea. No orthopnea. No lightheadedness or dizziness. No syncopal episodes. Abdominal: No abdominal pain. No nausea, vomiting. No diarrhea. No co nstipation. No bloody or tarry stools. No loss of appetite. Genitourinary: No dysuria, increased frequency, urgency. No urinary retention. Musculoskeletal: No myalgias. No muscle weakness, no gait dysfunction, no frequent falls. No back pain. No neck pain. Integumentary: No wounds, no lesions. No rash or pruritus. No unusual bruising. No change in hair or nails. Neurologic: No aphasia. No facial droop. No change in mentation. No head injury. No headache. No paralysis. No paresthesia. Psychiatric: No depression. No anxiety. No mood swings. Endocrine: Noted abnormal blood sugars. No weight change. No excessive sweating or thirst. No cold intolerance. PHYSICAL EXAMINATION Gen: This allen 50-year-old female. She is resting in chair appears to be comfortable and in no acute distress. Noted cough. HEENT: Head is atraumatic, normocephalic. Pupils equal, round. Sclerae is anicteric. NECK: Supple. No JVD. No lymphadenopathy. No thyromegaly. LUNGS: diminished with scattered expiratory wheeze and rhonchi. No intercostal retractions. No accessory muscle usage. HEART: Regular rate and rhythm. No murmur. ABDOMEN: Soft. Bowel sounds are present. No masses. No tenderness. EXTREMITIES: No pedal edema. No calf tenderness. dorsalis pedis palpable bilaterally. NEUROLOGICAL: Patient is awake, alert and oriented x3. Cranial nerves 2 through 12 are grossly intact. ASSESSMENT AND PLAN 1. Acute exacerbation of moderate intermittent asthma and COPD. Solu-Medrol transitioned to prednisone 40 mg daily, continue DuoNeb treatments 4 times daily and as needed, Robitussin with codeine as needed for cough, consult pulmonary medicine appreciated. 2. Acute bronchitis. Patient started on Omnicef 300 mg twice daily. 3. Hypertension. Continue lisinopril 10 mg daily. 4. Fibromyalgia. Stable. 5. Obstructive sleep apnea. Family may bring and CPAP machine. 6. Recent history of Covid 19 02/09/2021. 7. Tobacco use and dependence. Smoking cessation. 8. COVID-19 testing negative. Patient has been hospitalized during a pandemic. DISCHARGE PLAN Home on Thursday Impression and plan of care have been directed as dictated by the signing physician. Shena Ribera nurse practitioner acting as scribe for signing physician. Objective - Vital Signs Vital signs: Vital Signs Temp 97.5 F L 03/01/21 08:00 Pulse 74 03/01/21 08:38 Resp 18 03/01/21 08:00 BP 164/91 03/01/21 08:00 Pulse Ox 98 03/01/21 08:00 Intake & Output 02/28/21 03/01/21 03/01/21 18:59 06:59 18:59 Intake Total 720 500 158 Balance 720 500 158 Intake: Oral 720 500 158 Other: Voiding Method Toilet Toilet # Voids 3 3 # Bowel Movements 0 - Labs CBC & Chem 7: 02/26/21 18:03 02/26/21 18:03 Labs: Abnormal Lab Results - Last 24 Hours (Table) 02/28/21 02/28/21 03/01/21 Range/Units 12:26 20:25 07:12 POC Glucose (mg/dL) 145 H 128 H 151 H (75-99) mg/dL
[2021-03-01] MEDS: ALPRAZolam 0.5 MG TAB PO PRN (14:01)
--- NOTE | 2021-03-01 16:14 | P.PN ---
Subjective Progress Note Date: 03/01/21 Principal diagnosis: Acute asthma exacerbation Asthmatic bronchitis/tracheobronchitis Hypertension hypertensive cardiovascular disease Steroid-induced hyperglycemia and diabetes mellitus Morbid obesity Sleep disorder breathing and sleep apnea Chronic hoarseness History of COVID-19 pneumonia 03/01/2021, respiratory status significantly improved but is still tight, shortn ess of breath on activity and exertion present cough and sputum production improved, patient can be discharged home 24-48 hours on oral steroids and antibiotics follow with outpatient February 28 2021, patient seen carlitos examined during the rounds her labs reviewed medications reviewed care plan discussed with the patient at length, patient feels that the shortness of breath and wheezing slightly better, but still have congestion as well as nonproductive cough, severity however has improved, I will discuss with her about therapeutic plan she seems to agree Patient is a pleasant 50-year-old female well-known to me with prior history of sleep disorder breathing and sleep apnea she has been exposed and infected to covert in December recovered by January however do blood chronic hoarseness and ongoing shortness of breath she does have a history of mild intermittent asthma and by profession, she has a smoke half pack per day for 5-10 years off and on, 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, her other active medical problems include hypertension hypertensive cardiovascular disease fibromyalgia few weeks ago she joined work since then she is been short of breath get exhausted and tired easily, she have a couple of visit to emergency department at [facility] where she was discharged given course of steroids for 10 days, did not improve her situation, continue her shortness of breath and cough and chest tightness came into the [facility] for the evaluation and intervention and treatment, she has been using her CPAP machine at home regularly, sleep disorder breathing and sleep apnea well controlled, she however has chronic hoarseness started about covert infection and is not resolving On presentation in emergency department she was afebrile with slightly elevated blood pressure oxygen saturation was 98%, COVID-19 was negative, chest x-ray negative for any acute finding patient has been on steroids breathing treatments and oral antibiotic continuation of home medications taking Objective - Vital Signs Vital signs: Vital Signs Temp 97.8 F 03/01/21 14:49 Pulse 67 03/01/21 15:56 Resp 16 03/01/21 15:56 BP 137/78 03/01/21 14:49 Pulse Ox 92 L 03/01/21 14:49 Intake & Output 02/28/21 03/01/21 03/01/21 18:59 06:59 18:59 Intake Total 720 500 316 Balance 720 500 316 Intake: Oral 720 500 316 Other: Voiding Method Toilet Toilet Toilet # Voids 3 3 # Bowel Movements 0 - Exam - Constitutional General appearance: average body habitus, disheveled, mild distress - EENT Eyes: EOMI, PERRLA Ears: bilateral: normal - Neck Carotids: bilateral: upstroke normal Thyroid: bilateral: normal size - Respiratory Respiratory: bilateral: rhonchi, wheezing, prolonged expiration - Cardiovascular Rhythm: regular Heart sounds: normal: S1, S2 - Gastrointestinal General gastrointestinal: decreased bowel sounds, soft - Integumentary Integumentary: normal, normal turgor - Neurologic Neurologic: CNII-XII intact - Musculoskeletal Musculoskeletal: gait normal, generalized weakness, strength equal bilaterally - Psychiatric Psychiatric: A&O x's 3, appropriate affect, intact judgment & insight - Labs CBC & Chem 7: 02/26/21 18:03 02/26/21 18:03 Labs: Abnormal Lab Results - Last 24 Hours (Table) 02/28/21 03/01/21 03/01/21 Range/Units 20:25 07:12 12:22 POC Glucose (mg/dL) 128 H 151 H 128 H (75-99) mg/dL Assessment and Plan Assessment: Acute asthma exacerbation Asthmatic bronchitis/tracheobronchitis Hypertension hypertensive cardiovascular disease Steroid-induced hyperglycemia and diabetes mellitus Morbid obesity Sleep disorder breathing and sleep apnea Chronic hoarseness History of COVID-19 pneumonia Plan: IV steroids Bronchodilators Broad-spectrum antibiotics Continue CPAP from home Further evaluation of asthma as outpatient once stabilized patient may need evaluation for biologic agents Further evaluation of hoarseness as outpatient which includes ENT evaluation as well Patient can be discharged from pulmonary standpoint in next 24 hours follow-up as outpatient Time with Patient: Greater than 30
[2021-03-01 17:32] LABS: Glucose,Whole Blood 136 mg/dL (75-99)
[2021-03-01 20:19] LABS: Glucose,Whole Blood 140 mg/dL (75-99)
[2021-03-01] MEDS ORDERED: MELATONIN 3 MG TABLET PO SCH (21:00)
[2021-03-02 07:23] LABS: Glucose,Whole Blood 90 mg/dL (75-99)
[2021-03-02] MEDS: IPRATROPIUM-ALBUTEROL 3 ML NEB INHALATION SCH ×2 (08:00→11:18)
[2021-03-02] MEDS: INSULIN ASPART (NovoLOG) 100 UNIT/ML VIAL SQ SCH ×2 (08:42→13:04)
[2021-03-02 08:47] VITALS: BP 142/63; RESP 20; TEMP 97.5
[2021-03-02] MEDS: lisinopriL 10 MG TAB PO SCH (09:13)
[2021-03-02] MEDS: predniSONE 20 MG TAB PO SCH (09:13)
[2021-03-02] MEDS: CEFDINIR 300 MG CAP PO SCH (09:13)
[2021-03-02] MEDS: IPRATROPIUM-ALBUTEROL 3 ML NEB INHALATION PRN (12:35)
[2021-03-02 12:36] LABS: Glucose,Whole Blood 105 mg/dL (75-99)
[2021-03-02 12:48] VITALS: PULSE 77
--- NOTE | 2021-03-02 20:46 | P.DS ---
Providers Date of admission: 02/27/21 14:34 Attending physician: Rudy Rutledge Consults: 02/27/21 10:50 Consult Physician Routine Consulting Provider: Haider Velez Consult Reason/Comments: asthma Do you want consulting provider notified?: Yes Primary care physician: Mitul Rainey [facility] Course: HISTORY OF PRESENT ILLNESS This is a 50-year-old female patient of Dr. Rainey with past medical history of hypertension, fibromyalgia, moderate intermittent asthma, obstructive sleep apnea with CPAP, Covid 19 01/10/2021. Patient gives history that she has had ongoing problems since she had Covid 19. 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 Recently granddaughter was sick with upper respiratory infection and 2 days later she started having shortness of breath. She presented to [facility] last to the emergency center and was given prednisone 50 mg for 10 days and received a steroid injection IM. She states now that she cannot get her air. She has been hoarse since Covid 19. Last day she did vomit but that is resolved. No fever or chills. She does complain of dysuria. Patient presented to [facility] emergency center for evaluation. She was found to be afebrile, heart rate 61, blood pressure 177/84, pulse ox 98% on room air. EKG was sinus rhythm with left anterior fascicular block. CBC and CMP unremarkable. Lactic acid 0.8. D-dimer 0.52. INR 0.9. Coronavirus PCR not detected. Chest x-ray reveals no acute cardio pulmonary changes. She was started on DuoNeb treatments, IV Solu-Medrol and oral antibiotics, completed, admitted and consult placed with Dr. Velez her pulmonary doctor. 02/28: Patient has been seen by Dr. Velez with plan to continue current machellebahman duarte. She is on Kyle 60 mg IV every 6 hours. Blood sugars are running between 157 and 184. She has been afebrile, heart rate 84, blood pressure 163/79, pulse ox 96% on room air. Patient states she is only minimally better from yesterday. She states she did not sleep well. She was subsequently 03/01: Patient continues to have shortness of breath especially with activity and wheezing, tightness. She has been seen by Dr. Velez and continued on same medications. Capillary blood glucose running between 92 and 151. Patient has been afebrile, heart rate 54, blood pressure 164/91, pulse ox 90% on room air. We will plan to transition patient to oral prednisone and possible discharge tomorrow. , patient's doing much better today, has less shortness of breath, still has purulence noted on rhinorrhea, has no significant wheeze at this time, no sinus headache, no hemoptysis, patient had clearance with the purulence on Omnicef, this will be changed to doxycycline, and oral prednisone, with outpatient follow-up, with pulmonary, patient feels well enough to go home today, with oral prednisone taper, and inhalers. Nasal spray FINAL DIAGNOSIS 1. Acute exacerbation of moderate intermittent asthma and COPD. Solu-Medrol transitioned to prednisone 40 mg daily, continue DuoNeb treatments 4 times daily and as needed, Robitussin with codeine as needed for cough, consult pulmonary medicine appreciated.discharged on budesonide, doxycycline, Diflucan for oral riccardo, 2. Acute bronchiti purulent rhinitis s. Patient started on Omnicef 300 mg twice daily. This is discontinued, and changed to oral doxycycline, add Flonase, 3. Hypertension. Continue lisinopril 10 mg daily. 4. Fibromyalgia. Stable. 5. Obstructive sleep apnea. Family may bring and CPAP machine. 6. Recent history of Covid 19 02/09/2021. 7. Tobacco use and dependence. Smoking cessation. 8. COVID-19 testing negative. Patient has been hospitalized during a pandemic. DISCHARGE PLAN Home stable Discharge Medication List lisinopriL [Zestril] 10 mg PO DAILY 02/04/19 [History] ALPRAZolam [Xanax] 0.5 mg PO TID PRN 02/26/21 [History] Budesonide [Pulmicort] 0 mg INHALATION BID #60 ml 03/02/21 [Rx] Doxycycline [Vibramycin] 100 mg PO BID 10 Days #20 capsule 03/02/21 [Rx] Fluconazole [Diflucan] 100 mg PO DAILY #10 tab 03/02/21 [Rx] Ipratropium-Albuterol Nebulize [Duoneb 0.5 mg-3 mg/3 ml Soln] 3 ml INHALATION QID PRN #90 ml 03/02/21 [Rx] Melatonin 6 mg PO HS tablet 03/02/21 [Rx] Triamcinolone Acetonide [Nasacort] 1 spray EA NOSTRIL BID #10.8 ml 03/02/21 [Rx] guaiFENesin [Mucinex] 1,200 mg PO BID #60 tab 03/02/21 [Rx] predniSONE [Deltasone] 40 mg PO DAILY #15 tab 03/02/21 [Rx] Plan - Discharge Summary Discharge Rx Participant: Yes New Discharge Prescriptions: New predniSONE [Deltasone] 40 mg PO DAILY #15 tab Melatonin 6 mg PO HS tablet guaiFENesin [Mucinex] 1,200 mg PO BID #60 tab Fluconazole [Diflucan] 100 mg PO DAILY #10 tab Ipratropium-Albuterol Nebulize [Duoneb 0.5 mg-3 mg/3 ml Soln] 3 ml INHALATION QID PRN #90 ml PRN Reason: Shortness Of Breath Budesonide [Pulmicort] 0 mg INHALATION BID #60 ml Doxycycline [Vibramycin] 100 mg PO BID 10 Days #20 capsule Triamcinolone Acetonide [Nasacort] 1 spray EA NOSTRIL BID #10.8 ml Continue lisinopriL [Zestril] 10 mg PO DAILY ALPRAZolam [Xanax] 0.5 mg PO TID PRN PRN Reason: Anxiety Discontinued predniSONE [Deltasone] 50 mg PO DAILY Albuterol Sulfate [Proair Hfa] 2 puff INHALATION RT-Q6H PRN PRN Reason: Shortness Of Breath Discharge Medication List lisinopriL [Zestril] 10 mg PO DAILY 02/04/19 [History] ALPRAZolam [Xanax] 0.5 mg PO TID PRN 02/26/21 [History] Budesonide [Pulmicort] 0 mg INHALATION BID #60 ml 03/02/21 [Rx] Doxycycline [Vibramycin] 100 mg PO BID 10 Days #20 capsule 03/02/21 [Rx] Fluconazole [Diflucan] 100 mg PO DAILY #10 tab 03/02/21 [Rx] Ipratropium-Albuterol Nebulize [Duoneb 0.5 mg-3 mg/3 ml Soln] 3 ml INHALATION QID PRN #90 ml 03/02/21 [Rx] Melatonin 6 mg PO HS tablet 03/02/21 [Rx] Triamcinolone Acetonide [Nasacort] 1 spray EA NOSTRIL BID #10.8 ml 03/02/21 [Rx] guaiFENesin [Mucinex] 1,200 mg PO BID #60 tab 03/02/21 [Rx] predniSONE [Deltasone] 40 mg PO DAILY #15 tab 03/02/21 [Rx] Follow up Appointment(s)/Referral(s): Mitul Rainey MD [Primary Care Provider] - 1-2 days (Please call office to make appointment) Haider Velez MD [STAFF PHYSICIAN] - 1 Week (Please call office to make appointment) Patient Instructions/Handouts: COPD (Chronic Obstructive Pulmonary Disease) (DC), Pneumonia (DC) Discharge Disposition: HOME SELF-CARE
== END 2021-03-02 15:23 | disposition home or self-care (01) | DRG 202 ==
LOC: EC 14:36 → 6NMEDSUR 19:07 → 1SOBS 02-27 04:11 → OBSVTOIN 02-27 14:34 → 6NMEDSUR 02-27 16:26
PROVIDERS: ADMIT Internal Medicine Geriatric Medicine; ATTEND Internal Medicine Geriatric Medicine
DX: J45.21 Mild intermittent asthma with (acute) exacerbation (principal); J44.0 Chronic obstructive pulmonary disease with (acute) lower respiratory infection; B37.0 Candidal stomatitis; Z68.42 Body mass index [BMI] 45.0-49.9, adult; J44.1 Chronic obstructive pulmonary disease with (acute) exacerbation; I11.9 Hypertensive heart disease without heart failure; E09.65 Drug or chemical induced diabetes mellitus with hyperglycemia; J20.9 Acute bronchitis, unspecified; E66.01 Morbid (severe) obesity due to excess calories; Z20.822 Contact with and (suspected) exposure to COVID-19; G47.33 Obstructive sleep apnea (adult) (pediatric); I44.4 Left anterior fascicular block; J31.0 Chronic rhinitis; R30.0 Dysuria; T38.0X5A Adverse effect of glucocorticoids and synthetic analogues, initial encounter; M79.7 Fibromyalgia; M19.90 Unspecified osteoarthritis, unspecified site; F17.210 Nicotine dependence, cigarettes, uncomplicated; Z71.6 Tobacco abuse counseling; Z79.899 Other long term (current) drug therapy; Z86.16 Personal history of COVID-19; Z87.01 Personal history of pneumonia (recurrent); Z98.84 Bariatric surgery status; Z98.891 History of uterine scar from previous surgery; Z90.89 Acquired absence of other organs; Z98.51 Tubal ligation status; Z87.39 Personal history of other diseases of the musculoskeletal system and connective tissue; Z98.890 Other specified postprocedural states; Z91.048 Other nonmedicinal substance allergy status; Z80.8 Family history of malignant neoplasm of other organs or systems; Z80.0 Family history of malignant neoplasm of digestive organs; Z82.49 Family history of ischemic heart disease and other diseases of the circulatory system; Z83.79 Family history of other diseases of the digestive system; Z83.49 Family history of other endocrine, nutritional and metabolic diseases
CPT/HCPCS: 36415; 71046; 80053; 81003; 83605; 83880; 85025; 85379; 85610; 85730; 87635; 93005; 94640; 94760; 96374; 99285